=== PATIENT | male | born 1995 | race Caucasian/White ===

== ENCOUNTER 2018-01-06 11:39 | Emergency (ER) | payer OTHER ==
[~2018-01-06] VITALS: Ht 181.6 cm; Wt 99.7 kg
[2018-01-06 11:40] VITALS: TEMP 36.7; Ht 181.6 cm; Wt 99.7 kg
[2018-01-06] MEDS ORDERED: ACETAMINOPHEN 500 MG TAB PO STA (13:00)
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
[2018-01-06 14:27] VITALS: BP 118/70; PULSE 65; O2SAT 98
== END 2018-01-06 14:26 | disposition home or self-care (01) ==
LOC: EDBD 11:39 → C.EDD 11:41
DX: S09.90XA Unspecified injury of head, initial encounter (principal); S00.83XA Contusion of other part of head, initial encounter; V47.9XXA Unspecified car occupant injured in collision with fixed or stationary object in traffic accident, initial encounter; Y92.488 Other paved roadways as the place of occurrence of the external cause